=== PATIENT | female | born 1985 | race Caucasian/White ===

== ENCOUNTER 2017-02-08 12:24 | Emergency (ER) | payer OTHER ==
[~2017-02-08] VITALS: Ht 170.2 cm; Wt 118.0 kg
[~2017-02-08 12:24] MED LIST: AMBIEN5 MG PO; HYDROCHLOROTH12.5 M3 PO; HYDROCODON-ACE1 EAC7 PO; IBUPROFEN800 MG PO; LEXAPRO20 MG PO; OMEPRAZOLE20 MG PO; ORTHO CYCLEN1 TABLET PO; PHENTERMINE H37.5 MG PO; STRATTERA60 MG PO; TRAZODONE HCL100 MG PO; TRI-ESTARYLLA1 EACH PO
[2017-02-08 13:40] LABS: HEMATOCRIT 44.4 % (36.0-46.0); MCH 29.1 PG (29.0-34.0); MCHC 34.2 G/DL (30.0-36.0); MCV 84.9 FL (83-99); MEAN PLAT.VOLUME 8.7 uM^3 (9.5-12.4); PLATELET COUNT 396 K/uL (156-360); RBC DIS.WIDTH-CV 12.3 % (11.8-14.6); RED BLOOD COUNT 5.23 M/uL (3.80-5.20)
[2017-02-08 13:49] LABS: CHLORIDE 106 mEq/L (99-109); POTASSIUM 4.2 mEq/L (3.7-5.4); SODIUM 138 mEq/L (136-147)
[2017-02-08 13:52] LABS: GLUCOSE 107 mg/dL (70-99)
[2017-02-08 13:53] LABS: ANION GAP 12 MEQ/L (2-14)
[2017-02-08 13:54] LABS: TOTAL BILIRUBIN 0.6 mg/dL (0.0-1.0)
[2017-02-08 13:55] LABS: ALKALINE PHOSPHATASE 64 IU/L (3-129); GFR ESTIMATE (CALCULATED) > 59 mL/min/
[2017-02-08 13:56] LABS: UREA NITROGEN (BUN) 8 mg/dL (9-23)
[2017-02-08 13:59] LABS: LIPASE 4 U/L (1.0-51.0)
[2017-02-08 14:04] LABS: QUANTITATIVE HCG < 4.0 MIU/ML
[2017-02-08 14:59] LABS: ADD MIUA? YES; BILIRUBIN NEGATIVE; BLOOD NEGATIVE; COLOR YELLOW ((YELLOW)); GLUCOSE (STRIP) NEGATIVE; KETONES 20; LEUKOCYTES TRACE; NITRITE NEGATIVE; PROTEIN (STRIP) 30; SPECIFIC GRAVITY 1.014 (1.000-1.030)
[2017-02-08 15:06] LABS: BACTERIA RARE /HPF; EPITHELIAL CELLS 1+ /HPF; MUCUS 1+ /LPF; RED BLOOD CELLS 0-5 /HPF (0-5); WHITE BLOOD CELLS 0-5 /HPF (0-5)
[2017-02-08] MEDS ORDERED: ZOFRAN ODT4 MG PO (15:28)
[2017-02-08] MEDS ORDERED: CLONIDINE HCL0.1 MG PO (15:30)
[2017-02-08] MEDS ORDERED: BENTYL20 MG PO (15:30)
[2017-02-08 16:08] VITALS: BP 151/81
== END 2017-02-08 16:05 | disposition home or self-care (01) ==
LOC: EME 12:24
PROVIDERS: Nurse Practitioner Family
DX: F11.23 Opioid dependence with withdrawal (principal); R11.2 Nausea with vomiting, unspecified; R74.8 Abnormal levels of other serum enzymes; Z87.891 Personal history of nicotine dependence; F32.9 Major depressive disorder, single episode, unspecified; G43.909 Migraine, unspecified, not intractable, without status migrainosus; K21.9 Gastro-esophageal reflux disease without esophagitis
CPT/HCPCS: 74000; 80053; 81003; 83690; 84702; 85027; 99281; 99285; J1885; J2405; J7030